=== PATIENT | male | born 1975 | race Caucasian/White ===

== ENCOUNTER 2016-09-25 13:11 | Emergency (ER) | payer OTHER ==
--- NOTE | ~2016-09-25 | CR282 ---
[facility]. [facility] A Service of [facility] & [facility] / [facility] RADIOLOGY TEXT RESULTS PATIENT: MIRIAM RAJAN LOCATION: SED : 77 UNIT #: [id number] AGE: [address]: FRANK PERES SEX: M ORDER DR: [id number] [place] [id number] E MR#: [id number] Acc #: [id number] NAME: MIRIAM RAJAN : 1975 SEX: M STUDY DATE/TIME: 09/25/2016 12:48 UNIT: SED ROOM: STUDY DESCRIPTION: CR Wrist Min 3 View Rt Attending Physician: Frank Peres Ordering Physician: Vernon Springer Primary Care Physician: Primary Care Physician No MEDICAL IMAGING REPORT This report is preliminary unless electronic signature is present. EXAM Right wrist series 09/25/2016 HISTORY Pain 2 days. Carpal tunnel. No known injury. TECHNIQUE/COMPARISON AP, lateral and oblique radiographs of the right wrist are presented without prior films for comparison. FINDINGS Normal bony mineralization. No traumatic fracture or malalignment. The joint spaces are intact. No acute appearing soft tissue abnormality. Visualized portions of distal forearm and hand are unremarkable. Dictated by... Marino Barillas M.D. THIS IS AN ELECTRONICALLY VERIFIED REPORT Marino Barillas M.D. at 09/27/2016 4:25 PM WARD/spencer TD: 09/25/2016 17:39 JOB #: [id number] MEDICAL IMAGING REPORT
[~2016-09-25 13:11] MED LIST: BENTYL20 MG PO; NO MEDICATIONS; PAXIL; PHENERGAN25 M1 PO; PREDNISONE PO; REMERON; TYLENOL #3 PO; VOLTAREN75 MG PO
== END 2016-09-25 14:34 | disposition home or self-care (01) ==
LOC: SED 13:11
DX: M67.431 Ganglion, right wrist (principal); I10 Essential (primary) hypertension
CPT/HCPCS: 73110; 99283